=== PATIENT | female | born 1970 | race Caucasian/White ===

== ENCOUNTER 2019-11-18 11:17 | Emergency (ER) | payer OTHER, SELFPAY ==
[2019-11-18 11:24] VITALS: BP 122/92; PULSE 115; RESP 18; TEMP 36.9; O2SAT 95
--- NOTE | 2019-11-18 12:01 | ED.GENADULT ---
HPI - General Adult General Chief complaint: Unspecified <FLORA Ya Last Filed: 11/18/19 12:08> Stated complaint: hemorrhoid pain <FLORA Ya Last Filed: 11/18/19 12:08> Time Seen by Provider: 11/18/19 11:26 <FLORA Ya Last Filed: 11/18/19 12:08> Source: patient <FLORA Ya Last Filed: 11/18/19 12:08> Mode of arrival: ambulatory <FLORA Ya Last Filed: 11/18/19 12:08> Limitations: no limitations <FLORA Ya Last Filed: 11/18/19 12:08> History of Present Illness HPI narrative: Patient is a 49-year-old who presents to emergency department for evaluation of rectal pain with history of hemorrhoids noting that she is scheduled to see her specialist in January patient notes history of hemorrhoids and notes for the last several days she has had rectal pain and swelling has been using her prescribed medications and other hemorrhoid interventions with minimal improvement patient denies any constipation diarrhea fever chills nausea vomiting <FLORA Ya Last Filed: 11/18/19 12:08> Related Data Home medications: Home Medications Medication Instructions Recorded Confirmed hydrocortisone-pramoxine 11/18/19 [Proctofoam HC] <FLORA Ya Last Filed: 11/18/19 12:08> Allergies/adverse reactions: Allergies Allergy/AdvReac Type Severity Reaction Status Date / Time meperidine [From Demerol] Allergy Intermediate Blister Verified 11/18/19 11:31 iodine Allergy Unknown HIVES, RED Verified 11/18/19 11:31 FACE RADIOPAQUECONTR Allergy Unknown CT Uncoded 11/26/08 13:55 CONTRAST DYE/ HIVES RED FACE <FLORA Ya Last Filed: 11/18/19 12:08> Review of Systems Review of Systems: Narrative: CONSTITUTIONAL: Denies fever, chills, or sweats. GASTROINTESTINAL: Denies abdominal pain, nausea, vomiting, or diarrhea. GENITOURINARY: Denies dysuria or hematuria. SKIN: Positive for rectal swelling and pain MUSCULOSKELETAL: Denies back pain, joint pain, or myalgia. <Alberto Bush PA-C - Last Filed: 11/18/19 12:08> PMFSH Past Medical History Medical History: Medical History (Updated 11/19/19 @ 00:00 by Gene Corado) Hemorrhoids <Alberto Bush PA-C - Last Filed: 11/18/19 12:08> Surgical History Surgical History: Surgical History (Updated 11/18/19 @ 12:03 by Alberto Bush PA-C) H/O hemorrhoidectomy <Alberto Bush PA-C - Last Filed: 11/18/19 12:08> Social History Social History: Social History Gender identity (if verbalized by the patient): Female <Alberto Bush PA-C - Last Filed: 11/18/19 12:08> Exam Narrative: Exam Narrative: GENERAL: Well-appearing, well-nourished, and in no acute distress. HEAD: Normocephalic, atraumatic. EYES: PERRLA and EOMI. EXTREMITIES: Normal range of motion. No edema. SKIN: Warm, dry, no rash. Patient with multiple hemorrhoids in the rectal region without erythema NEURO: No focal deficits. Alert and oriented x3. Cranial nerves II through XII grossly intact PSYCH: Normal mood and affect. <Alberto Bush PA-C - Last Filed: 11/18/19 12:08> Course Course Emergency Course: Patient in the room advised to adhere to her hemorrhoid care plan and to follow with specialist Patient felt appropriate for outpatient reevaluation Patient provided with reasons to return Patient is afebrile nontoxic-appearing no distress <Alberto Bush PA-C - Last Filed: 11/18/19 12:08> Vital Signs Vital signs: Vital Signs Temperature 98.5 F 11/18/19 11:24 Pulse Rate 115 H 11/18/19 11:24 Respiratory Rate 18 11/18/19 11:24 Blood Pressure 122/92 H 11/18/19 11:24 Pulse Oximetry 95 11/18/19 11:24 Temperature 98.5 F 11/18/19 11:24 Pulse Rate 115 H 11/18/19 11:24 Respiratory Rate 18 11/18/19 11:24
== END 2019-11-18 12:24 | disposition home or self-care (01) ==
PROVIDERS: Emergency Provider General Practice
DX: K64.9 Unspecified hemorrhoids (principal)
CPT/HCPCS: 99283